=== PATIENT | female | born 1935 | race Caucasian/White ===

== ENCOUNTER 2017-05-24 08:43 | Day surgery (SDC) | payer MEDICARE ==
[2017-05-24] VITALS (7 sets, daily range): BP systolic 161–207; BP diastolic 58–82; PULSE 54–67; TEMP 97.6–98.1
[~2017-05-24] VITALS: Ht 167.6 cm; Wt 59.5 kg
[2017-05-24 09:32] LABS: BASO # 0.1 (0.0-0.2); BASO % 0.6 % (0.0-2.0); EOS # 0.3 (0.0-0.7); GRAN # 5.6 (1.4-6.5); GRAN % 72.4 % (42.2-75.2); HEMATOCRIT 41.1 % (37.0-47.0); LYMPH # 1.1 (1.2-3.4); LYMPH % 14.5 % (20.0-51.0); MEAN CELL VOLUME 93 fl (80.0-100.0); MEAN CORPUSCULAR HEMOGLOBIN 29 pg (27.0-31.0); MEAN CORPUSCULAR HGB CONC 32 g/dl (33.0-37.0); MEAN PLATELET VOLUME 10.8 fl (7.4-10.4); MONO # 0.6 (0.1-0.6); MONO % 8.2 % (1.7-9.3); PLATELET COUNT 191 K/mm3 (130-400); RED BLOOD COUNT 4.43 M/mm3 (4.10-5.30); WHITE BLOOD COUNT 7.8 K/mm3 (4.8-10.8)
[2017-05-24] MEDS ORDERED: TYLENOL PM EXTR1 TA1 PO (09:34)
[2017-05-24] MEDS ORDERED: ELIQUIS 2.5 PO (09:34)
[2017-05-24] MEDS ORDERED: CORDARONE200 MG/TAB PO (09:35)
[2017-05-24] MEDS ORDERED: MACRODANTIN50 MG/CA1 PO (09:35)
[2017-05-24] MEDS ORDERED: COREG 25MG25 MG/TAB PO (09:36)
[2017-05-24 09:37] LABS: CALCIUM 9.5 mg/dL (8.4-10.2); CREATININE, serum 0.89 mg/dL (0.52-1.25); POTASSIUM 4.3 mmol/L (3.4-5.0)
[2017-05-24 09:46] LABS: INR 1.7 (0.8-3.0); PROTHROMBIN TIME 19.6 SECONDS (9.7-12.8)
[2017-05-24] MEDS ORDERED: NORVASC 5MG5 MG/TAB PO (11:25)
== END 2017-05-24 15:33 | disposition home or self-care (01) ==
LOC: COL.CAR 08:43
PROVIDERS: Internal Medicine Cardiovascular Disease
DX: I48.1 Persistent atrial fibrillation (principal); I10 Essential (primary) hypertension; Q21.1 Atrial septal defect; I44.0 Atrioventricular block, first degree; K21.9 Gastro-esophageal reflux disease without esophagitis; G47.33 Obstructive sleep apnea (adult) (pediatric); G43.909 Migraine, unspecified, not intractable, without status migrainosus; E16.2 Hypoglycemia, unspecified; Z90.710 Acquired absence of both cervix and uterus; Z79.01 Long term (current) use of anticoagulants; Z86.73 Personal history of transient ischemic attack (TIA), and cerebral infarction without residual deficits
CPT/HCPCS: J2704; J7120